=== PATIENT | male | born 1975 | race Native Hawaiian/Other Pacific Islander ===

== ENCOUNTER 2018-12-05 19:19 | Emergency (ER) | payer OTHER ==
[~2018-12-05] VITALS: Ht 177.8 cm; Wt 115.2 kg
[2018-12-05 20:36] LABS: PLATELET COUNT 194 K/uL (142-355)
[2018-12-05 20:46] LABS: POTASSIUM 4.7 mmol/L (3.6-5.2)
[2018-12-05 23:16] VITALS: BP 138/76; TEMP 97.9
== END 2018-12-05 23:18 | disposition home or self-care (01) ==
LOC: ED 19:19
PROVIDERS: Emergency Medicine Emergency Medical Services
DX: K21.9 Gastro-esophageal reflux disease without esophagitis (principal); I16.0 Hypertensive urgency
CPT/HCPCS: 36415; 80053; 81000; 83690; 85027; 93005; 96360; 96375; 96376; 99284; J2405; J3490; Q9963

== ENCOUNTER 2020-11-26 21:20 | Emergency (ER) | payer OTHER ==
[~2020-11-26] VITALS: Ht 175.3 cm; Wt 122.5 kg
[2020-11-26 22:50] LABS: PLATELET COUNT 161 K/uL (142-355)
[2020-11-26 23:04] LABS: POTASSIUM 4.2 mmol/L (3.6-5.2)
[2020-11-27 00:25] VITALS: BP 158/85; TEMP 99.1
== END 2020-11-27 00:25 | disposition home or self-care (01) ==
LOC: ED 21:20
PROVIDERS: Hospitalist
DX: L03.114 Cellulitis of left upper limb (principal)
CPT/HCPCS: 36415; 80048; 85027; 87040; 96365; 96375; 99284; J1885; J3370

== ENCOUNTER 2021-05-17 16:22 | Emergency (ER) | payer OTHER ==
[~2021-05-17] VITALS: Ht 175.3 cm; Wt 122.5 kg
[2021-05-17 16:32] VITALS: BP 159/93; TEMP 101.4
== END 2021-05-17 17:53 | disposition home or self-care (01) ==
LOC: ED 16:22
DX: J06.9 Acute upper respiratory infection, unspecified (principal); U07.1 COVID-19; R50.9 Fever, unspecified; F17.220 Nicotine dependence, chewing tobacco, uncomplicated
CPT/HCPCS: 96372; 99283; J1100

== ENCOUNTER 2021-05-21 16:05 | Observation (INO) | payer OTHER ==
[~2021-05-21] VITALS: Ht 177.8 cm; Wt 122.7 kg
[2021-05-21 17:17] VITALS: BP 133/91; TEMP 102.1; Ht 177.8 cm; Wt 122.7 kg
[2021-05-21 18:02] LABS: PLATELET COUNT 166 K/uL (142-355)
[2021-05-21 18:17] LABS: POTASSIUM 3.7 mmol/L (3.6-5.2)
[2021-05-21 19:52] VITALS: BP 132/87; TEMP 99.2
[2021-05-21 23:58] VITALS: BP 124/79; TEMP 97.7
[2021-05-22 04:26] VITALS: BP 130/80; TEMP 96.9
[2021-05-22 05:31] LABS: PLATELET COUNT 164 K/uL (142-355)
[2021-05-22 05:46] LABS: POTASSIUM 4.2 mmol/L (3.6-5.2)
[2021-05-22 08:00] VITALS: BP 114/72; TEMP 98.1
[2021-05-22 12:00] VITALS: BP 151/99; TEMP 99
[2021-05-22] MEDS ORDERED: ALBUTEROL108 MCG/AC INH (12:57)
[2021-05-22] MEDS ORDERED: IVERMECTIN3 MG PO (13:03)
[2021-05-22] MEDS ORDERED: BENZONATATE100 MG PO (13:03)
[2021-05-22] MEDS ORDERED: Z-PAK PO (13:04)
[2021-05-22] MEDS ORDERED: CHOL100034 PO (13:09)
[2021-05-22] MEDS ORDERED: ASCO500T18 PO (13:09)
[2021-05-22] MEDS ORDERED: DECADRON4 MG PO (13:11)
== END 2021-05-22 15:00 | disposition home or self-care (01) ==
LOC: MED/SURG 16:05
PROVIDERS: ADMIT Internal Medicine; ATTEND Internal Medicine
DX: U07.1 COVID-19 (principal); R06.00 Dyspnea, unspecified; R09.02 Hypoxemia; E86.0 Dehydration; Z72.0 Tobacco use
CPT/HCPCS: 36415; 80053; 85027; 87635; 94760; 99220; G0378; G0379; J0248; J0456; J1100; J1650; U0003